=== PATIENT | male | born 2000 | race American Indian/Alaskan Native ===

== ENCOUNTER 2019-04-15 12:49 | Emergency (ER) | payer SELFPAY ==
[2019-04-15 12:58] VITALS: BP 132/80
--- NOTE | 2019-04-15 12:58 | Event Note ---
ED Screening Note ED Screening Note: 18 yo male presents via EMS after multiple suicide attempts. Parents called 911. He wants to . Tried to hang himself with a belt, tried to cut himself with a knife. This initial assessment/diagnostic orders/clinical plan/treatment(s) is/are subject to change based on patients health status, clinical progression and re- assessment by fellow clinical providers in the ED. Further treatment and workup at subsequent clinical providers discretion. Patient/guardian urged not to elope from the ED as their condition may be serious if not clinically assessed and managed. Initial orders include: labs MH consult
== END 2019-04-15 13:30 | disposition left against medical advice (07) ==
LOC: ED 12:49
DX: R45.851 Suicidal ideations (principal); Z53.21 Procedure and treatment not carried out due to patient leaving prior to being seen by health care provider

== ENCOUNTER 2021-02-11 21:28 | Emergency (ER) | payer SELFPAY ==
[2021-02-11 21:33] VITALS: BP 107/63
[2021-02-11] MEDS ORDERED: LIDOCAINE-MPF (1%) 10 MG/1 ML VIAL 5 ML INFILTRATI ONE (22:12)
[2021-02-11] MEDS ORDERED: HYDROcodone/ACETAMINOPHEN 5-325 MG TAB PO ONE (22:12)
--- NOTE | 2021-02-11 22:18 | Emergency Department Report ---
HPI - General Chief Complaint: Urogenital-Male Time Seen by Provider: 02/11/21 22:01 - HPI HPI: 20-year-old -[place] male presents to the emergency department with complaint of a 4 to 5-day history of progressively worsening right-sided scrotal and testicular pain and swelling. He also complains of a 1 day history of some yellow penile discharge. Patient says that he last had sexual intercourse with a woman 3 weeks ago. He says that he spoke to this individual who says that they have been checked out recently and were negative for any STDs. He denies any history of STDs in himself. He has not taken anything for symptoms prior to presentation. He denies any fever, back pain, diarrhea, constipation, rash or lesions. ED Past Medical Hx - Past Medical History Previous Medical History?: No - Surgical History Past Surgical History?: No Additional Surgical History: Cleft lip/palate - Social History Smoking Status: Current Every Day Smoker Substance Use Type: Marijuana - Medications Home Medications: Home Medications Medication Instructions Recorded Confirmed Last Taken Type Doxycycline Hyclate [Doxycycline 100 mg PO Q12HR #14 tab 02/12/21 Unknown Rx Hyclate TAB] ED Review of Systems ROS: Stated complaint: PAINFUL TESTICLES Other details as noted in HPI Comment: All other systems reviewed and negative Constitutional: denies: chills, fever Respiratory: denies: cough, shortness of breath Cardiovascular: denies: chest pain, palpitations Gastrointestinal: denies: nausea, vomiting Genitourinary: discharge, testicular pain Musculoskeletal: denies: back pain, arthralgia Skin: denies: rash, lesions Physical Exam - Physical Exam Vital Signs: Vital Signs 02/11/21 21:32 Temperature 98.2 F Pulse Rate 84 Respiratory 16 Rate Blood Pressure 107/63 O2 Sat by Pulse 98 Oximetry Physical Exam: GENERAL: The patient is well-developed well-nourished. HENT: Normocephalic. Atraumatic. Patient has moist mucous membranes. EYES: Extraocular motions are intact. NECK: Supple. Trachea is midline. CHEST/LUNGS: Clear to auscultation. There is no respiratory distress noted. HEART/CARDIOVASCULAR: Regular. There is no tachycardia. There is no murmur. ABDOMEN: Abdomen is soft, nontender. Patient has normal bowel sounds. SKIN: Skin is warm and dry. NEURO: The patient is awake, alert, and oriented. The patient is cooperative. Normal speech. MUSCULOSKELETAL: There is no tenderness or deformity. There is no limitation range of motion. : There is reproducible right sided scrotal and testicular tenderness to palpation. The right testicle feels enlarged when compared to the left. No palpable hernia. No rash or lesions seen on the genitals. No current discharge seen. ED Course Vital Signs 02/11/21 21:32 Temperature 98.2 F Pulse Rate 84 Respiratory 16 Rate Blood Pressure 107/63 O2 Sat by Pulse 98 Oximetry ED Medical Decision Making - Radiology Data Radiology results: report reviewed ULTRASOUND SCROTUM INDICATION / CLINICAL INFORMATION: Scrotal and testicular pain and swelling. COMPARISON: None available. FINDINGS -- RIGHT TESTIS: Size = 3.6 cm. - Appearance: No significant abnormality. - Cyst or Mass: Small dystrophic intratesticular calcification. No suspicious mass. - Color Doppler Flow: No significant abnormality. EPIDIDYMIS: No significant abnormality. HYDROCELE: Trace right hydrocele VARICOCELE: None demonstrated. FINDINGS -- LEFT TESTIS: Size = 3.7 cm. - Appearance: No significant abnormality. - Cyst or Mass: None. - Color Doppler Flow: No significant abnormality. EPIDIDYMIS: No significant abnormality. HYDROCELE: None. VARICOCELE: None demonstrated. ADDITIONAL FINDINGS: None. IMPRESSION: Nonspecific trace right hydrocele. Otherwise, no significant abnormality. No evidence of torsion. - Medical Decision Making Patient presents with a 4 to 5-day history of right-sided testicular/scrotal pa in and swelling, and a 1 day history of yellowish penile discharge. On examination he does have some tenderness to palpation that is reproducible to that right testicle and it feels like it is somewhat enlarged compared to the left. However, the patient had a testicular/scrotal ultrasound that shows that the testicles are the same size, there is no evidence of torsion, and the only finding was a mild right-sided hydrocele. Patient was given a shot of Rocephin and will be given a prescription for doxycycline to empirically treat him for gonorrhea chlamydia and urethritis. He has been given an outpatient referral for the health department and a local urologist. Vital signs reassuring including being afebrile. Critical Care Time: No Critical care attestation.: If time is entered above; I have spent that time in minutes in the direct care of this critically ill patient, excluding procedure time. ED Disposition Clinical Impression: Testicular pain, right, Urethritis Hydrocele Qualifiers: Hydrocele type: unspecified Qualified Code(s): N43.3 - Hydrocele, unspecified Disposition: 01 HOME / SELF CARE / HOMELESS Is pt being admited?: No Condition: Stable Instructions: Hydrocele, Adult, Urethritis, Adult Additional Instructions: Please follow-up with a primary care provider in the next few days. Take all medications as prescribed. Please avoid any sexual intercourse/contact for at least 1 week after finishing the antibiotics. I am giving you a referral for a local urologist, Dr. Dawn, to follow-up regarding your testicular pain and the ultrasound finding of a hydrocele. I have provided information about hydroceles. Return to the emergency department with any worsening of your symptoms, new or concerning symptoms not addressed during this current emergency department visit, or with any acute distress. Prescriptions: Doxycycline Hyclate [Doxycycline Hyclate TAB] 100 mg PO Q12HR #14 tab Referrals: PRIMARY MD KETTY [Primary Care Provider] - 3-5 Days JERMAN DAWN MD [Staff Physician] - 3-5 Days [facility] [Outside] - 3-5 Days Forms: STI Treatment and Prevention, Work/School Release Form(ED) Time of Disposition: 00:28
--- NOTE | 2021-02-12 00:11 | Ultrasound Report ---
ULTRASOUND SCROTUM INDICATION / CLINICAL INFORMATION: Scrotal and testicular pain and swelling. COMPARISON: None available. FINDINGS -- RIGHT TESTIS: Size = 3.6 cm. - Appearance: No significant abnormality. - Cyst or Mass: Small dystrophic intratesticular calcification. No suspicious mass. - Color Doppler Flow: No significant abnormality. EPIDIDYMIS: No significant abnormality. HYDROCELE: Trace right hydrocele VARICOCELE: None demonstrated. FINDINGS -- LEFT TESTIS: Size = 3.7 cm. - Appearance: No significant abnormality. - Cyst or Mass: None. - Color Doppler Flow: No significant abnormality. EPIDIDYMIS: No significant abnormality. HYDROCELE: None. VARICOCELE: None demonstrated. ADDITIONAL FINDINGS: None. IMPRESSION: Nonspecific trace right hydrocele. Otherwise, no significant abnormality. No evidence of torsion. Signer Name: Yousuf Villa MD Signed: 02/12/2021 12:06 AM Workstation Name: [id number]
== END 2021-02-12 01:15 | disposition home or self-care (01) ==
LOC: ED 21:28
DX: N43.3 Hydrocele, unspecified (principal); F17.200 Nicotine dependence, unspecified, uncomplicated; F12.10 Cannabis abuse, uncomplicated; N34.2 Other urethritis
CPT/HCPCS: 93975; 96372; 99283; J0696; J3490